=== PATIENT | female | born 1960 | race Caucasian/White ===

== ENCOUNTER → 2020-10-01 10:06 | Outpatient (CLI) | payer BC, SELFPAY ==
[2020-10-01 11:53] LABS: Add Manual Diff / Slide Review NO; Basophils Absolute Auto 0 /uL (0-100); Basophils Percent Auto 0.7 % (0-2); Eosinophils Absolute Auto 200 /uL (0-450); Eosinophils Percent Auto 2.8 % (2-4); Hematocrit 39.6 % (36-46); Hemoglobin 13.6 g/dL (12.0-16.0); Lymphocytes Absolute Auto 1900 /uL (1100-4500); Lymphocytes Percent Auto 31.7 % (25-40); Mean Corpuscular HGB Conc 34.3 % (30-36); Mean Corpuscular Hemoglobin 28.9 PG (26-34); Mean Corpuscular Volume 84.1 fL (80-100); Monocytes Absolute Auto 500 /uL (0-900); Monocytes Percent Auto 7.4 % (3-14); Neutrophils Absolute Auto 3500 /uL (1500-7000); Neutrophils Percent Auto 57.4 % (50-75); Platelet Count 269 X10^3/uL (150-400); Red Blood Cell Count 4.71 X10^6/uL (4.0-5.2); Red Cell Distribution Width 13.5 % (11.6-14.8); White Blood Cell Count 6.1 X10^3/uL (4.5-11.0)
[2020-10-01 13:35] LABS: Appearance Urine UA CLEAR; Bilirubin Urine UA NEGATIVE (NEGATIVE); Color Urine UA YELLOW; Glucose Urine UA NEGATIVE (Negative); Ketones Urine UA NEGATIVE (NEGATIVE); Leukocyte Esterase Urine UA NEGATIVE (NEGATIVE); Nitrite Urine UA NEGATIVE (Negative); Occult Blood Urine UA 3+ (Negative); Protein Urine UA TRACE (Negative); Urobilinogen Urine UA 0.2 E.U./dL (0.2)
[2020-10-01 13:59] LABS: pH Urine UA 5.5 (4.5-8.0)
[2020-10-01 14:00] LABS: Bacteria Urine None Seen; Culture Indicated Urine Cult Not Indicated; RBC Urine 5-10/HPF (0-5/HPF); Squamous Epithelial Cell Urine 0-1 /HPF (0-5/HPF); WBC Urine None Seen (0-5/HPF)
[2020-10-01 14:58] LABS: Alanine Aminotransferase 52 IU/L (<35); Albumin 3.9 g/dL (3.5-5.0); Albumin Globulin Ratio 1.4 (1.0-2.8); Alkaline Phosphatase 68 U/L (38-126); Aspartate Aminotransferase 38 IU/L (14-36); BUN Creatinine Ratio 22.8 (6-22); Bilirubin Total 0.5 mg/dL (0.2-1.3); Blood Urea Nitrogen 18 mg/dL (7-17); Calcium 9.5 mg/dL (8.4-10.2); Carbon Dioxide 31 mmol/L (22-32); Chloride 103 mmol/L (98-107); Cholesterol 149 mg/dL (140-199); Estimated Glomerular Filt Rate > 60.0 mL/min (>60); Globulin 2.8 g/dL (1.7-4.1); Glucose 88 mg/dL (80-110); HDL Cholesterol 51 mg/dL (40-60); HEMOLYSIS < 15 (0-50); LDL Cholesterol Calculated 83 mg/dL (<100); Potassium 4.2 mmol/L (3.4-5.1); Sodium 138 mmol/L (137-145); Total Protein 6.7 g/dL (6.3-8.2); Triglycerides 77 mg/dL (35-150)
== END ==
PROVIDERS: PCP Registered Nurse; Referring Provider Registered Nurse; Visit Provider Registered Nurse
DX: Z00.00 Encounter for general adult medical examination without abnormal findings (principal); Z79.899 Other long term (current) drug therapy; I10 Essential (primary) hypertension; E78.5 Hyperlipidemia, unspecified
CPT/HCPCS: 36415; 80053; 80061; 81003; 81015; 85025

== ENCOUNTER → 2020-11-04 08:39 | Outpatient (CLI) | payer BC, SELFPAY ==
[2020-11-04 09:30] LABS: Alanine Aminotransferase 36 IU/L (<35); Albumin 3.9 g/dL (3.5-5.0); Albumin Globulin Ratio 1.6 (1.0-2.8); Alkaline Phosphatase 69 U/L (38-126); Aspartate Aminotransferase 28 IU/L (14-36); Bilirubin Total 0.4 mg/dL (0.2-1.3); Bilirubin Unconjugated 0.4 mg/dL (0.0-1.1); Globulin 2.5 g/dL (1.7-4.1); HEMOLYSIS < 15 (0-50); Total Protein 6.4 g/dL (6.3-8.2)
== END ==
PROVIDERS: PCP Registered Nurse; Referring Provider Registered Nurse; Visit Provider Registered Nurse
DX: R74.8 Abnormal levels of other serum enzymes (principal)
CPT/HCPCS: 36415; 80076

== ENCOUNTER → 2021-02-17 07:31 | Outpatient (CLI) | payer BC, SELFPAY ==
[2021-02-17] MEDS: COVID-19 VACC #1, MRNA(MOD) 100 MCG/0.5 ML VIAL IM (07:38)
== END ==
PROVIDERS: PCP Family Medicine; Visit Provider Internal Medicine
DX: Z23 Encounter for immunization (principal)
CPT/HCPCS: 0011A; 91301

== ENCOUNTER → 2021-03-17 07:36 | Outpatient (CLI) | payer BC, SELFPAY ==
[2021-03-17] MEDS: COVID-19 VACC #2, MRNA(MOD) 100 MCG/0.5 ML VIAL IM (07:45)
== END ==
PROVIDERS: PCP Family Medicine; Visit Provider Internal Medicine
DX: Z23 Encounter for immunization (principal)
CPT/HCPCS: 0012A; 91301

== ENCOUNTER → 2021-12-30 15:22 | Outpatient (CLI) | payer BC, SELFPAY | PROVIDERS: PCP Family Medicine; Visit Provider Nurse Practitioner Family | DX: N89.8 Other specified noninflammatory disorders of vagina (principal); R30.0 Dysuria | CPT/HCPCS: 87077; 87086; 87186; 87210 ==

== ENCOUNTER → 2022-08-23 16:42 | Outpatient (CLI) | payer BC, OTHER, SELFPAY ==
--- NOTE | 2022-08-23 16:43 | DI.RAD.S_ITS ---
PROCEDURE: XR KNEE LT 3V INDICATIONS: left knee pain TECHNIQUE: 3 views of the knee were acquired. COMPARISON: None. FINDINGS: Bones: No fractures or dislocations. No suspicious bony lesions. Mild tricompartmental degenerative changes of the left knee with mild medial femorotibial compartment joint space narrowing. Soft tissues: No joint effusion. No suspicious soft tissue calcifications. IMPRESSION: Left knee without acute fracture or dislocation. Mild tricompartmental degenerative changes of the left knee. Dictated by: Godfrey Rosenberg M.D. on 08/24/2022 at 10:21 Approved by: Godfrey Rosenberg M.D. on 08/24/2022 at 10:22
== END ==
PROVIDERS: PCP Family Medicine; Referring Provider Family Medicine; Visit Provider Family Medicine
DX: M25.562 Pain in left knee (principal); G89.29 Other chronic pain
CPT/HCPCS: 73562

== ENCOUNTER → 2022-08-25 09:10 | Outpatient (CLI) | payer BC, OTHER, SELFPAY ==
[2022-08-25 10:33] LABS: Add Manual Diff / Slide Review NO; Basophils Absolute Auto 0 /uL (0-100); Basophils Percent Auto 0.8 % (0-2); Eosinophils Absolute Auto 100 /uL (0-450); Eosinophils Percent Auto 2.7 % (2-4); Hematocrit 40.9 % (36-46); Hemoglobin 13.9 g/dL (12.0-16.0); Lymphocytes Absolute Auto 1600 /uL (1100-4500); Lymphocytes Percent Auto 29.1 % (25-40); Mean Corpuscular Hemoglobin 28.1 PG (26-34); Mean Corpuscular Volume 82.7 fL (80-100); Monocytes Absolute Auto 400 /uL (0-900); Monocytes Percent Auto 7.6 % (3-14); Neutrophils Absolute Auto 3200 /uL (1500-7000); Neutrophils Percent Auto 59.8 % (50-75); Platelet Count 263 X10^3/uL (150-400); Red Blood Cell Count 4.94 X10^6/uL (4.0-5.2); Red Cell Distribution Width 13.7 % (11.6-14.8); White Blood Cell Count 5.4 X10^3/uL (4.5-11.0)
[2022-08-25 10:40] LABS: Microalbumi Creatinin Ratio Ur 33.9 ug/mg CR (<30); Microalbumin Urine Random 8.9 mg/dL (0-1.6)
[2022-08-25 10:56] LABS: Alanine Aminotransferase 38 IU/L (<35); Albumin 4.2 g/dL (3.5-5.0); Albumin Globulin Ratio 1.4 (1.0-2.8); Alkaline Phosphatase 76 U/L (38-126); Aspartate Aminotransferase 36 IU/L (14-36); Bilirubin Total 0.6 mg/dL (0.2-1.3); Blood Urea Nitrogen 16 mg/dL (7-17); Calcium 9.3 mg/dL (8.4-10.2); Carbon Dioxide 28 mmol/L (22-32); Chloride 101 mmol/L (98-107); Cholesterol 159 mg/dL (140-199); Estimated Glomerular Filt Rate > 60 mL/min (>60); Glucose 94 mg/dL (80-110); HDL Cholesterol 51 mg/dL (40-60); HEMOLYSIS < 15 (0-50); LDL Cholesterol Calculated 91 mg/dL (<100); Potassium 3.8 mmol/L (3.4-5.1); Sodium 138 mmol/L (137-145); Total Protein 7.2 g/dL (6.3-8.2); Triglycerides 84 mg/dL (35-150)
[2022-08-25 11:26] LABS: TSH w/ Reflex to FT4 1.92 uIU/mL (0.47-4.68)
== END ==
PROVIDERS: PCP Family Medicine; Referring Provider Family Medicine; Visit Provider Family Medicine
DX: Z00.00 Encounter for general adult medical examination without abnormal findings (principal); E78.2 Mixed hyperlipidemia; I10 Essential (primary) hypertension; R74.8 Abnormal levels of other serum enzymes
CPT/HCPCS: 36415; 80053; 80061; 82043; 82570; 84443; 85025

== ENCOUNTER → 2022-09-09 14:54 | Outpatient (CLI) | payer BC, OTHER, SELFPAY | PROVIDERS: PCP Family Medicine; Visit Provider Registered Nurse | DX: M25.422 Effusion, left elbow (principal) | CPT/HCPCS: 87070; 87075; 87205 ==

== ENCOUNTER → 2023-09-21 07:00 | Outpatient (CLI) | payer BC, OTHER, SELFPAY ==
[2023-09-21 08:21] LABS: Add Manual Diff / Slide Review NO; Basophils Absolute Auto 0 /uL (0-100); Basophils Percent Auto 0.7 % (0-2); Eosinophils Absolute Auto 300 /uL (0-450); Eosinophils Percent Auto 4.7 % (2-4); Hematocrit 40.9 % (36-46); Lymphocytes Absolute Auto 2100 /uL (1100-4500); Lymphocytes Percent Auto 31.1 % (25-40); Mean Corpuscular HGB Conc 34.4 % (30-36); Mean Corpuscular Hemoglobin 28.7 PG (26-34); Mean Corpuscular Volume 83.5 fL (80-100); Monocytes Absolute Auto 600 /uL (0-900); Neutrophils Absolute Auto 3600 /uL (1500-7000); Neutrophils Percent Auto 54.5 % (50-75); Platelet Count 282 X10^3/uL (150-400); Red Blood Cell Count 4.89 X10^6/uL (4.0-5.2); Red Cell Distribution Width 13.6 % (11.6-14.8); White Blood Cell Count 6.7 X10^3/uL (4.5-11.0)
[2023-09-21 08:46] LABS: Alanine Aminotransferase 32 IU/L (<35); Albumin 4.1 g/dL (3.5-5.0); Albumin Globulin Ratio 1.5 (1.0-2.8); Alkaline Phosphatase 65 U/L (38-126); Aspartate Aminotransferase 30 IU/L (14-36); BUN Creatinine Ratio 23.3 (6-22); Bilirubin Total 0.3 mg/dL (0.2-1.3); Blood Urea Nitrogen 17 mg/dL (7-17); Calcium 9.5 mg/dL (8.4-10.2); Carbon Dioxide 33 mmol/L (22-32); Chloride 101 mmol/L (98-107); Cholesterol 162 mg/dL (140-199); Estimated Glomerular Filt Rate > 60 mL/min (>60); Globulin 2.7 g/dL (1.7-4.1); Glucose 99 mg/dL (80-110); HDL Cholesterol 51 mg/dL (40-60); HEMOLYSIS < 15 (0-50); LDL Cholesterol Calculated 86 mg/dL (<100); Potassium 4.2 mmol/L (3.4-5.1); Sodium 138 mmol/L (137-145); Total Protein 6.8 g/dL (6.3-8.2); Triglycerides 127 mg/dL (35-150)
[2023-09-21 09:13] LABS: TSH w/ Reflex to FT4 3.13 uIU/mL (0.47-4.68)
[2023-09-21 10:07] LABS: Creatinine Urine Random 123.2 mg/dL
[2023-09-21 10:11] LABS: Microalbumi Creatinin Ratio Ur 12.1 ug/mg CR (<30); Microalbumin Urine Random 1.5 mg/dL (0-1.6)
[2023-09-21 16:29] LABS: Hep C Virus Ab w/Reflex Quant NEGATIVE s/c (NEGATIVE)
== END ==
PROVIDERS: PCP Family Medicine; Referring Provider Family Medicine; Visit Provider Family Medicine
DX: Z00.00 Encounter for general adult medical examination without abnormal findings (principal); E78.5 Hyperlipidemia, unspecified; I10 Essential (primary) hypertension; R74.8 Abnormal levels of other serum enzymes
CPT/HCPCS: 36415; 80053; 80061; 82043; 82570; 84443; 85025; 86803

== ENCOUNTER → 2023-10-18 08:37 | Outpatient (CLI) | payer BC, OTHER, SELFPAY ==
--- NOTE | 2023-10-18 08:39 | DI.MG.S_ITS ---
BILATERAL DIGITAL SCREENING MAMMOGRAM 3D/2D WITH CAD: 10/18/2023 CLINICAL: Routine screening. Family history of breast cancer. No prior exams were available for comparison. There are scattered areas of fibroglandular density in both breasts (category b / 25%-50% glandular tissue). Current study was also evaluated with a Computer Aided Detection (CAD) system. There is an asymmetry in the right breast posterior depth outer region seen on the craniocaudal view only. No other significant masses, calcifications, or other findings are seen in either breast. IMPRESSION: INCOMPLETE: NEEDS ADDITIONAL IMAGING EVALUATION The asymmetry in the right breast is indeterminate. Needs additional imaging evaluation. Recommend diagnostic mammogram and ultrasound. Based on the Tyrer Cuzick model (a risk assessment model) the patient's lifetime risk is 7.7% and her 10 year risk is 3.4%. According to the ACR, ACS, and NCCN guidelines, an annual breast MRI exam along with mammogram is recommended if the patient's lifetime risk is 20% or greater. This exam was interpreted at Station ID: [id number]. NOTE: For mammograms, a report in lay terms will be sent to the patient. Approximately 15% of breast malignancies will not be visualized mammographically. In the management of a palpable breast mass, a negative mammogram must not discourage biopsy of a clinically suspicious lesion. Electronically Signed By: Tash Gutierrez M.D., PH.D eb/:10/20/2023 10:32:11 letter sent: Additional Imaging Needed ACR BI-RADS Category 0: Incomplete 3340F
== END ==
PROVIDERS: PCP Family Medicine; Referring Provider Family Medicine; Visit Provider Family Medicine
DX: Z80.3 Family history of malignant neoplasm of breast (principal); Z12.31 Encounter for screening mammogram for malignant neoplasm of breast; Z00.00 Encounter for general adult medical examination without abnormal findings; E78.5 Hyperlipidemia, unspecified; I10 Essential (primary) hypertension; R74.8 Abnormal levels of other serum enzymes
CPT/HCPCS: 77063; 77067

== ENCOUNTER → 2023-11-03 09:39 | Outpatient (CLI) | payer BC, OTHER, SELFPAY ==
--- NOTE | 2023-11-03 09:40 | DI.MG.S_ITS ---
UNILATERAL RIGHT DIGITAL DIAGNOSTIC MAMMOGRAM 3D/2D WITH ADDITIONAL VIEWS: 11/03/2023 CLINICAL: Additional evaluation requested from prior study. Comparison is made to exams dated: 10/18/2023 mammogram - [facility], 08/03/2020 mammogram, 06/16/2018 mammogram, and 04/06/2016 mammogram - outside facility. There are scattered areas of fibroglandular density in the right breast (category b / 25%-50% glandular tissue). Comparison to outside priors demonstrate that the previously described asymmetry in the outer posterior region has been stable since at least 2018. No other significant masses, calcifications, or other findings are seen in the breast. IMPRESSION: BENIGN Right breast outer posterior asymmetry is stable since 2018 consistent with a benign etiology. No mammographic evidence of malignancy. A 1 year screening mammogram is recommended. Findings and recommendations were conveyed to the patient during today's evaluation. Based on the Tyrer Cuzick model (a risk assessment model) the patient's lifetime risk is 7.7% and her 10 year risk is 3.4%. According to the ACR, ACS, and NCCN guidelines, an annual breast MRI exam along with mammogram is recommended if the patient's lifetime risk is 20% or greater. This exam was interpreted at Station ID: [id number]. NOTE: For mammograms, a report in lay terms will be sent to the patient. Approximately 15% of breast malignancies will not be visualized mammographically. In the management of a palpable breast mass, a negative mammogram must not discourage biopsy of a clinically suspicious lesion. Electronically Signed By: Tash Gutierrez M.D., PH.D eb/:11/04/2023 01:30:25 letter sent: Normal Exam ACR BI-RADS Category 2: Benign Finding(s) 3342F
== END ==
PROVIDERS: PCP Family Medicine; Referring Provider Family Medicine; Visit Provider Family Medicine
DX: R92.8 Other abnormal and inconclusive findings on diagnostic imaging of breast (principal); N64.89 Other specified disorders of breast
CPT/HCPCS: 77065; G0279

== ENCOUNTER 2024-02-06 07:37 | Day surgery (SDC) | payer BC, OTHER, SELFPAY ==
[2024-02-06] MEDS: LACTATED RINGERS 1,000 ML 42 ML IV (07:53)
[2024-02-06 08:03] VITALS: BP 145/97; PULSE 105; RESP 16; TEMP 36.2; O2SAT 99
--- NOTE | 2024-02-06 08:46 | P.HP_ITS ---
History of Present Illness History of Present Illness Date Patient Seen: 02/06/24 Time Patient Seen: 08:46 Chief complaint: Screening Colonoscopy Narrative: 63-year-old woman here for screening colonoscopy. Last colonoscopy 13 years ago normal. No family history of intestinal malignancy. She reports occasional fecal incontinence associated with nausea. No blood per rectum or unintentional weight loss PFSH Social History Smoking Status: Never smoker alcohol intake: current Meds Home Medications and Allergies Home Medications Medication Instructions Recorded Confirmed Type diclofenac sodium 1 % topical gel 2 gram topical QID 09/25/20 09/18/23 History triamcinolone acetonide 0.1 % 1 applictn topical DAILY 09/25/20 09/18/23 History topical cream mometasone eardrops EAR-BOTH 02/11/21 09/18/23 History ondansetron 4 mg disintegrating 4 mg PO Q8H PRN nausea 02/11/21 02/06/24 History tablet conjugated estrogens 0.625 mg/gram 0.625 mg vaginal DAILY #30 grams 08/23/22 09/18/23 Rx vaginal cream (Premarin) lisinopril 10 0.5 tab PO DAILY #90 tabs 09/18/23 02/06/24 Rx mg-hydrochlorothiazide 12.5 mg tablet simvastatin 40 mg tablet 40 mg PO DAILY #90 tabs 09/18/23 02/06/24 Rx sumatriptan succinate 100 mg tablet See Rx Instructions PO .COMPLEX 09/18/23 02/06/24 Rx #30 tabs Allergies Allergy/AdvReac Type Severity Reaction Status Date / Time adhesive Allergy Mild Rash Verified 02/06/24 08:01 Exam Vital Signs (past 8 hours): - 02/06/24 08:03 Temperature 97.1 F L Pulse Rate 105 H Respiratory Rate 16 Blood Pressure 145/97 H Pulse Oximetry 99 Oxygen Delivery Method Room Air Oxygen Delivery Method Room Air Narrative Exam Narrative: General adult woman alert oriented no acute distress Chest nonlabored respiration Extremities warm well perfused Assessment & Plan Assessment & Plan narrative: The patient requires colorectal screening and colonoscopy is recommended. Te chnical details were discussed. Risks, benefits, alternatives explained. Risks including but not limited to myocardial infarction, aspiration, bleeding, pain, missed lesion, incomplete examination, need for further radiographic studies, colonic perforation, and need for major abdominal surgery were discussed. All questions were answered to their satisfaction, and they are in agreement with this plan.
[2024-02-06 09:15] VITALS: BP 107/71; PULSE 89; RESP 24; TEMP 37; O2SAT 94
[2024-02-06 09:20] VITALS: BP 121/76; PULSE 99; RESP 15; TEMP 37.1; O2SAT 96
--- NOTE | 2024-02-06 09:22 | P.OP.COLON_ITS ---
Operative Date/Time/Diagnoses Date of procedure: 02/06/24 Time of procedure: 09:22 Pre-op diagnosis: Colorectal screening Procedure & Clinicians Study performed: Colonoscopy Indications: Colorectal screening Surgeon: Jose Manuel Beltre Procedure Notes Procedure in detail: The history and physical was performed/updated and the patient is ASA class is 2. The procedure was discussed in detail with the patient. Potential risks complications including infection, bleeding, missed diagnosis, perforation, need for surgery, and were explained. Their questions were answered and informed consent was obtained. Patient was brought to the procedure room and placed standard monitoring equipme nt. The patient's vital signs were monitored continuously throughout the entire procedure. Prior to starting time-out was performed. The patient was placed in the left lateral recumbent position. Procedural sedation was administered by anesthesia. Examination began with a thorough inspection of the perianal area there was no evidence of fissures, fistulae, external hemorrhoids or cutaneous malignancy. The colonoscopy scope was then placed into the anal canal and was advanced to the cecum, which was identified by the ileocecal valve, the appendiceal orifice and the confluence of the taenia. The scope was then slowly withdrawn examining colon thoroughly in all directions, irrigating it of any residual stool. The scope was retroflexed within the rectum The patient tolerated the procedure well. They will be discharged once criteria are met. The prep was of good/excellent quality. The withdrawl time was 6 minutes. FINDINGS * No masses polyps or inflammation. * Tortuous colon within the pelvis Complications: none Impression: Normal colonoscopy Post-procedure Recommendations: Colonoscopy in 10 years Disposition: same day surgery
[2024-02-06 09:25] VITALS: BP 134/90; PULSE 91; RESP 12; TEMP 36.9; O2SAT 97
[2024-02-06 09:30] VITALS: BP 138/88; PULSE 90; RESP 16; TEMP 36.9; O2SAT 97
[2024-02-06 09:50] VITALS: PULSE 82; RESP 16; TEMP 36.4; O2SAT 98
== END 2024-02-06 09:53 | disposition home or self-care (01) ==
PROVIDERS: PCP Family Medicine; Referring Provider Surgery; Visit Provider Surgery
PROC: 0DJD8ZZ Inspection of Lower Intestinal Tract, Via Natural or Artificial Opening Endoscopic (ICD-10-PCS; CPT 45378; principal; 2024-02-06 08:45)
DX: Z12.11 Encounter for screening for malignant neoplasm of colon (principal)
CPT/HCPCS: 45378; J2704

== ENCOUNTER 2024-07-08 21:42 | Emergency (ER) | payer BC, OTHER, SELFPAY ==
[2024-07-08 21:45] VITALS: BP 175/90; PULSE 82; RESP 18; TEMP 36.3; O2SAT 98; BMI 30.4
[2024-07-08 22:11] LABS: Add Manual Diff / Slide Review NO; Basophils Absolute Auto 0 /uL (0-100); Basophils Percent Auto 0.4 % (0-2); Eosinophils Absolute Auto 200 /uL (0-450); Eosinophils Percent Auto 1.5 % (2-4); Hematocrit 41.1 % (36-46); Hemoglobin 14.1 g/dL (12.0-16.0); Lymphocytes Absolute Auto 2000 /uL (1100-4500); Lymphocytes Percent Auto 17.2 % (25-40); Mean Corpuscular HGB Conc 34.3 % (30-36); Mean Corpuscular Hemoglobin 28.2 PG (26-34); Mean Corpuscular Volume 82.2 fL (80-100); Monocytes Absolute Auto 800 /uL (0-900); Monocytes Percent Auto 6.6 % (3-14); Neutrophils Absolute Auto 8500 /uL (1500-7000); Neutrophils Percent Auto 74.3 % (50-75); Platelet Count 306 X10^3/uL (150-400); Red Blood Cell Count 5.01 X10^6/uL (4.0-5.2); Red Cell Distribution Width 14.1 % (11.6-14.8); White Blood Cell Count 11.4 X10^3/uL (4.5-11.0)
[2024-07-08 22:20] LABS: Alanine Aminotransferase 44 IU/L (<35); Albumin 4.4 g/dL (3.5-5.0); Albumin Globulin Ratio 1.4 (1.0-2.8); Alkaline Phosphatase 74 U/L (38-126); Aspartate Aminotransferase 39 IU/L (14-36); BUN Creatinine Ratio 16.8 (6-22); Bilirubin Total 0.7 mg/dL (0.2-1.3); Blood Urea Nitrogen 17 mg/dL (7-17); Calcium 9.5 mg/dL (8.4-10.2); Carbon Dioxide 26 mmol/L (22-32); Chloride 105 mmol/L (98-107); Estimated Glomerular Filt Rate > 60 mL/min (>60); Globulin 3.1 g/dL (1.7-4.1); Glucose 121 mg/dL (80-110); HEMOLYSIS 49 (0-50); Lipase 100 U/L (23-300); Potassium 3.5 mmol/L (3.4-5.1); Sodium 140 mmol/L (137-145); Total Protein 7.5 g/dL (6.3-8.2)
--- NOTE | 2024-07-08 22:32 | DI.CT.S_ITS ---
PROCEDURE: CT KIDNEY URETER BLADDER (KUB) INDICATIONS: flank pain TECHNIQUE: Axial sections were acquired from the lung bases to the pubic symphysis. Coronal and sagittal reformats were performed. For radiation dose reduction, the following was used: automated exposure control, adjustment of mA and/or kV according to patient size. COMPARISON: None. FINDINGS: Image quality: Diagnostic. Lower Chest: No significant findings. URINARY: Right Kidney: Mild hydronephrosis. No renal stones. Right Ureter: Obstructing 3 mm stone at the right ureterovesicular junction with mild upstream hydroureter and mild periureteral stranding. Left Kidney: No stones or hydronephrosis. Left Ureter: No hydroureter. Bladder: Normal wall thickness. No stones. ABDOMEN: Liver: No contour-deforming solid mass. Hepatic steatosis. Gallbladder: No radiopaque gallstones or wall thickening. Biliary ducts: No biliary dilation. Pancreas: No ductal dilation. Spleen: Size is within normal limits. Adrenal Glands: No adrenal nodules. Stomach and Bowel: Normal colonic caliber, without significant wall thickening. Peritoneum: No abnormal intraperitoneal fluid. No free air. Ventral Wall: No hernia. Abdominal Nodes: No enlarged retroperitoneal or mesenteric lymph nodes. Vessels: Aorta and inferior vena cava are normal in size. Atherosclerotic vascular calcifications. PELVIS: Pelvic Organs: Unremarkable. Pelvic Nodes: Unremarkable. Miscellaneous: No inguinal hernias are seen. Bones: Mild degenerative changes of the spine. IMPRESSION: Obstructing 3 mm stone at the right ureterovesicular junction with mild upstream hydroureteronephrosis. Dictated by: Danie Kelley M.D. on 07/08/2024 at 23:12 Approved by: Danie Kelley M.D. on 07/08/2024 at 23:16
--- NOTE | 2024-07-09 00:28 | ED_ITS ---
HPI - Back Pain/Injury General Chief Complaint: Back Pain/Injury Stated Complaint: Back and Rt side px Time Seen by Provider: 07/09/24 00:25 Source: patient History of Present Illness HPI Narrative: 64-year-old woman with a history of hypertension hyperlipidemia comes in complaining of right side flank and low abdominal pain. She experienced an episode earlier this month that was severe, caused vomiting and seemed to improve. She started having symptoms again yesterday and comes in for further evaluation. She has not taken any medication for this. She has not complaining of fevers, dysuria, hematuria. With his current episode she has not had any vomiting and by the time of our exam her pain is entirely resolved. She complains of no dyspnea, orthopnea, chest pain palpitations or headache Related Data Home Medications Medication Instructions Recorded Confirmed diclofenac sodium 1 % topical gel 2 gram topical QID 09/25/20 09/18/23 triamcinolone acetonide 0.1 % 1 applictn topical DAILY 09/25/20 09/18/23 topical cream mometasone eardrops EAR-BOTH 02/11/21 09/18/23 ondansetron 4 mg disintegrating 4 mg PO Q8H PRN nausea 02/11/21 02/06/24 tablet Previous Rx's Medication Instructions Recorded conjugated estrogens 0.625 mg/gram 0.625 mg vaginal DAILY #30 grams 08/23/22 vaginal cream (Premarin) lisinopril 10 0.5 tab PO DAILY #90 tabs 09/18/23 mg-hydrochlorothiazide 12.5 mg tablet simvastatin 40 mg tablet 40 mg PO DAILY #90 tabs 09/18/23 sumatriptan succinate 100 mg tablet See Rx Instructions PO .COMPLEX 09/18/23 #30 tabs oxycodone-acetaminophen 5 mg-325 1 tab PO Q6H PRN pain #10 tabs 07/09/24 mg tablet Allergies Allergy/AdvReac Type Severity Reaction Status Date / Time adhesive Allergy Mild Rash Verified 02/06/24 08:01 Review of Systems Review of Systems Narrative: Pertinent positive and negative findings as per HPI Patient History Medical History (Updated 07/09/24 @ 00:54 by Poly Mcqueen MD) Kidney stone Hyperlipidemia Essential hypertension Surgical History (Updated 07/09/24 @ 00:49 by Poly Mcqueen MD) History of cholecystectomy Social History Smoking Status: Never smoker alcohol intake: current Smoking Status: Never smoker alcohol intake frequency: holidays/special occasions only Substance Use Type: does not use Exam Initial Vital Signs Initial Vital Signs: Vital Signs Temperature 97.4 F L 07/08/24 21:45 Pulse Rate 82 07/08/24 21:45 Respiratory Rate 18 07/08/24 21:45 Blood Pressure 175/90 H 07/08/24 21:45 Pulse Oximetry 98 07/08/24 21:45 Oxygen Delivery Method Room Air 07/08/24 21:45 General: Healthy appearing, in no acute distress. Able to give a complete and coherent history. Well-nourished well-developed HEENT: Moist mucous membranes, normal sclera with reactive pupils, Respiratory: Lungs are clear to auscultation, no wheezing no rales no rhonchi. Full and symmetrical air movement Cardiac: Regular rate and rhythm no murmurs no bruits Abdomen: Soft, nontender, good bowel tones, no flank pain Skin: Warm and dry, no rashes Neurologic: Grossly neurologically intact with no obvious asymmetries or abnormalities Extremities: No trauma, well perfused Psych: Cooperative, appropriate insight and affect Course Orders Ordered: ED Orders 07/08/24 22:00 CMP [Comprehensive Metabolic Panel] Stat Complete Blood Count AUTO DIFF Stat Lipase Stat 07/08/24 22:32 CT kidney ureter bladder (KUB) Stat Ondansetron HCl (Ondansetron 4 Mg/2 Ml Inj) 4 mg IV NOW PRN PRN Reason: Nausea And Vomiting Vital Signs Vital signs: Vital Signs - 8 hr 07/08/24 21:45 Temperature 97.4 F L Pulse Rate 82 Respiratory Rate 18 Blood Pressure 175/90 H Pulse Oximetry 98 Oxygen Delivery Method Room Air MDM - Back Pain/Injury Lab Data 07/08/24 22:00 07/08/24 22:00 Labs: Lab Results 07/08/24 Range/Units 22:00 WBC 11.4 H (4.5-11.0) X10^3/uL RBC 5.01 (4.0-5.2) X10^6/uL Hgb 14.1 (12.0-16.0) g/dL Hct 41.1 (36-46) % MCV 82.2 (80-100) fL MCH 28.2 (26-34) PG MCHC 34.3 (30-36) % RDW 14.1 (11.6-14.8) % Plt Count 306 (150-400) X10^3/uL Neut % (Auto) 74.3 (50-75) % Lymph % (Auto) 17.2 L (25-40) % [place] % (Auto) 6.6 (3-14) % Eos % (Auto) 1.5 L (2-4) % Baso % (Auto) 0.4 (0-2) % Neut # (Auto) 8500 H (2230-6412) /uL Lymph # (Auto) 2000 (8979-2967) /uL [place] # (Auto) 800 (0-900) /uL Eos # (Auto) 200 (0-450) /uL Baso # (Auto) 0 (0-100) /uL Sodium 140 (137-145) mmol/L Potassium 3.5 (3.4-5.1) mmol/L Chloride 105 (98-107) mmol/L Carbon Dioxide 26 (22-32) mmol/L BUN 17 (7-17) mg/dL Creatinine 1.01 (0.52-1.04) mg/dL Estimated GFR > 60 (>60) mL/min BUN/Creatinine Ratio 16.8 (6-22) Glucose 121 H (80-110) mg/dL Calcium 9.5 (8.4-10.2) mg/dL Total Bilirubin 0.7 (0.2-1.3) mg/dL AST 39 H (14-36) IU/L ALT 44 H (<35) IU/L Alkaline Phosphatase 74 (38-126) U/L Total Protein 7.5 (6.3-8.2) g/dL Albumin 4.4 (3.5-5.0) g/dL Globulin 3.1 (1.7-4.1) g/dL Albumin/Globulin Ratio 1.4 (1.0-2.8) Lipase 100 (23-300) U/L Imaging Data CT scan - abdomen/pelvis: Radiologist's Impression: PROCEDURE: CT KIDNEY URETER BLADDER (KUB) INDICATIONS: flank pain TECHNIQUE: Axial sections were acquired from the lung bases to the pubic symphysis. Coronal and sagittal reformats were performed. For radiation dose reduction, the following was used: automated exposure control, adjustment of mA and/or kV according to patient size. COMPARISON: None. FINDINGS: Image quality: Diagnostic. Lower Chest: No significant findings. URINARY: Right Kidney: Mild hydronephrosis. No renal stones. Right Ureter: Obstructing 3 mm stone at the right ureterovesicular junction with mild upstream hydroureter and mild periureteral stranding. Left Kidney: No stones or hydronephrosis. Left Ureter: No hydroureter. Bladder: Normal wall thickness. No stones. ABDOMEN: Liver: No contour-deforming solid mass. Hepatic steatosis. Gallbladder: No radiopaque gallstones or wall thickening. Biliary ducts: No biliary dilation. Pancreas: No ductal dilation. Spleen: Size is within normal limits. Adrenal Glands: No adrenal nodules. Stomach and Bowel: Normal colonic caliber, without significant wall thickening. Peritoneum: No abnormal intraperitoneal fluid. No free air. Ventral Wall: No hernia. Abdominal Nodes: No enlarged retroperitoneal or mesenteric lymph nodes. Vessels: Aorta and inferior vena cava are normal in size. Atherosclerotic vascular calcifications. PELVIS: Pelvic Organs: Unremarkable. Pelvic Nodes: Unremarkable. Miscellaneous: No inguinal hernias are seen. Bones: Mild degenerative changes of the spine. IMPRESSION: Obstructing 3 mm stone at the right ureterovesicular junction with mild upstream hydroureteronephrosis. Dictated by: Danie Kelley M.D. on 07/08/2024 at 23:12 MDM Narrative Medical decision making narrative: CC: Intermittent episodes of right lower quadrant and right flank pain Complicating co-morbidities: Hypertension, hyperlipidemia Data collected from: patient Differential considered: Kidney stone, shingles, diverticulitis, appendicitis, bowel obstruction, constipation Exam documented above, pertinent findings include: At time of our exam her exam is entirely benign. No flank or abdominal pain. Lab Test results independently reviewed as above. Pertinent findings: CBC shows mild leukocytosis at 11.4 without left shift. H and H is unremarkable Chemistries show normal renal function, minimal elevation to AST and ALT Lipase is unremarkable Imaging studies independently reviewed: CT scan shows 3 mm kidney stone on the right side with mild hydronephrosis Discussion: 64-year-old woman with 3 mm right kidney stone almost into the bladder. Findings are reviewed with her. No evidence of infection, acute renal failure, pain is adequately controlled at this point. Reviewed anticipated course of stone. Anticipate that this will pass without any complication. She has given a small course of Percocet to use should pain return and we discussed use of ibuprofen and Tylenol. Also discussed reasons to return to the emergency department. She is safe for discharge Discharge Plan Departure Patient Disposition: Home Clinical Impression: Kidney stone Instructions: DI for Kidney Stones Activity Restrictions/Additional Instructions: Thank you for coming in today Your CT scan shows a 3 mm kidney stone almost ready to enter your bladder. This means that you have already done the majority of the work in passing the stone. This should continue to pass without any further complications There was no evidence of infection, acute kidney failure or other complications that would require hospitalization today. Using 400 mg of ibuprofen (2 [id number] pills) and 1 Tylenol every 6 hours can be very helpful in controlling pain. For severe pain using 400 mg of ibuprofen and 1 Percocet can be helpful. Percocet can cause constipation and has a potential for addiction so do use it sparingly and with a stool softener If you find that you are having increased pain, fevers or new findings please do return to the emergency department Prescriptions: New oxycodone-acetaminophen 5-325 mg tablet 1 tab PO Q6H PRN (Reason: pain) Qty: 10 0RF No Action diclofenac sodium 1 % gel 2 gram TOP QID Rx Instructions: apply to single elbow, wrist or hand; for hand includes palm/fingers/back of hand triamcinolone acetonide 0.1 % cream 1 applictn TOP DAILY Premarin 0.625 mg/gram cream 0.625 mg vaginal DAILY Qty: 30 1RF Rx Instructions: off 5 days; repeat cycle mometasone eardrops drops EAR-BOTH ondansetron 4 mg tablet,disintegrating 4 mg PO Q8H PRN (Reason: nausea ) lisinopril-hydrochlorothiazide 10-12.5 mg tablet 0.5 tab PO DAILY Qty: 90 3RF simvastatin 40 mg tablet 40 mg PO DAILY Qty: 90 3RF sumatriptan succinate 100 mg tablet See Rx Instructions PO .COMPLEX Qty: 30 3RF Rx Instructions: take 1 tab at onset of headache; if no relief, may repeat 1 tab after at least 2 hrs; max = 2 tabs/24 hrs PO Referrals: Guru Samaniego MD [Primary Care Provider] - Stand Alone Forms: Patient Portal/API
[2024-07-09 00:29] VITALS: BP 186/89; PULSE 68; RESP 17; O2SAT 98
[2024-07-09 00:54] LABS: Bacteria Urine Few (2-10); Culture Indicated Urine Cult Not Indicated; Mucus Urine 3+ (Negative); RBC Urine >100/HPF (0-5/HPF); Squamous Epithelial Cell Urine 1-5 /HPF (0-5/HPF); Urine Volume 10mL (spun); WBC Urine 1-5/HPF (0-5/HPF)
[2024-07-09 01:03] VITALS: BP 165/90; PULSE 68; RESP 16; O2SAT 95
== END 2024-07-09 01:03 | disposition home or self-care (01) ==
PROVIDERS: Emergency Provider Emergency Medicine; PCP Family Medicine
DX: N20.0 Calculus of kidney (principal); Z79.899 Other long term (current) drug therapy
CPT/HCPCS: 36415; 74176; 80053; 81003; 81015; 83690; 85025; 99283; 99284

== ENCOUNTER → 2024-08-19 06:45 | Outpatient (CLI) | payer BC, OTHER, SELFPAY ==
--- NOTE | 2024-08-19 06:47 | DI.US.S_ITS ---
PROCEDURE: US RENAL COMPLETE INDICATIONS: Mild hydronephrosis R due to stone TECHNIQUE: Real-time scanning was performed of the kidneys and bladder, with image documentation. Twenty-four images and 3 cine series COMPARISON: None. FINDINGS: Echogenic, shadowing 5mm diameter calcification posterior to the urinary bladder (images 21-23) suspicious for right distal ureter calculus but without evidence of right hydronephrosis. Alternatively phlebolith or other pelvic calcification could give this appearance. CT urogram may be useful for further evaluation. 1.6 x 1.5 x 1.5 cm superior-anterior left renal anechoic simple cyst. Kidneys: Kidneys are normal in size. Right kidney measures approximately 11.5 cm long; left kidney measures approximately 12.1 cm long. Right renal cortical thickness is 1.3 cm; left renal cortical thickness is 1.6 cm. Renal cortical echotexture is normal. No ultrasound evidence of solid mass lesion. Bladder: Pre-void bladder volume is 149 mL. Post-void residual is 0 mL. Pre-void images demonstrate no intraluminal masses. On pre-void images, bilateral ureteral jets are noted with color Doppler interrogation. Miscellaneous: No free pelvic fluid. IMPRESSION: 5mm diameter calcification posterior to the urinary bladder suspicious for right distal ureter calculus as discussed above. CT urogram may be useful for further evaluation. 1.6 cm left renal cyst. No hydronephrosis. Dictated by: Jacob Saavedra M.D. on 08/19/2024 at 9:26 Approved by: Jacob Saavedra M.D. on 08/19/2024 at 9:41
== END ==
PROVIDERS: PCP Family Medicine; Referring Provider Physician Assistant; Visit Provider Physician Assistant
DX: N20.1 Calculus of ureter (principal); N28.1 Cyst of kidney, acquired
CPT/HCPCS: 76770

== ENCOUNTER → 2024-08-24 08:32 | Outpatient (CLI) | payer BC, OTHER, SELFPAY ==
--- NOTE | 2024-08-24 08:33 | DI.RAD.S_ITS ---
PROCEDURE: XR ANKLE LT MIN 3V INDICATIONS: Left foot and ankle injury TECHNIQUE: 3 views of the ankle were acquired. COMPARISON: None. FINDINGS: Bones: No acute displaced fracture or dislocation. The ankle mortise appears intact. Soft tissues: No suspicious calcifications. IMPRESSION: No acute osseous abnormality. If there is high concern for occult injury, consider repeat radiography or cross-sectional imaging. Dictated by: Freddy No M.D. on 08/24/2024 at 8:52 Approved by: Freddy No M.D. on 08/24/2024 at 8:52
--- NOTE | 2024-08-24 08:33 | DI.RAD.S_ITS ---
PROCEDURE: XR FOOT LT MIN 3V INDICATIONS: Left foot and ankle injury TECHNIQUE: 3 views of the foot were acquired. COMPARISON: None. FINDINGS: Bones: Possible minimally displaced fracture of the 5th distal phalanx. Soft tissues: No suspicious calcifications. IMPRESSION: Possible minimally displaced fracture of the 5th distal phalanx. Dictated by: Freddy No M.D. on 08/24/2024 at 8:52 Approved by: Freddy No M.D. on 08/24/2024 at 8:54
== END ==
LOC: RAD 08:32
PROVIDERS: PCP Family Medicine; Referring Provider Physician Assistant Surgical; Visit Provider Physician Assistant Surgical
DX: S99.912A Unspecified injury of left ankle, initial encounter (principal); S99.922A Unspecified injury of left foot, initial encounter; M25.572 Pain in left ankle and joints of left foot; X58.XXXA Exposure to other specified factors, initial encounter
CPT/HCPCS: 73610; 73630

== ENCOUNTER → 2024-10-18 06:55 | Outpatient (CLI) | payer BC, OTHER, SELFPAY ==
[2024-10-18 07:56] LABS: Add Manual Diff / Slide Review NO; Basophils Absolute Auto 100 /uL (0-100); Basophils Percent Auto 0.8 % (0-2); Eosinophils Absolute Auto 400 /uL (0-450); Hematocrit 41.5 % (36-46); Hemoglobin 14.1 g/dL (12.0-16.0); Lymphocytes Absolute Auto 2800 /uL (1100-4500); Lymphocytes Percent Auto 31.2 % (25-40); Mean Corpuscular HGB Conc 34.1 % (30-36); Mean Corpuscular Hemoglobin 28.4 PG (26-34); Mean Corpuscular Volume 83.3 fL (80-100); Monocytes Absolute Auto 600 /uL (0-900); Monocytes Percent Auto 6.4 % (3-14); Neutrophils Absolute Auto 5200 /uL (1500-7000); Neutrophils Percent Auto 57.6 % (50-75); Platelet Count 320 X10^3/uL (150-400); Red Blood Cell Count 4.98 X10^6/uL (4.0-5.2); Red Cell Distribution Width 13.5 % (11.6-14.8)
[2024-10-18 08:19] LABS: Alanine Aminotransferase 49 IU/L (<35); Albumin Globulin Ratio 1.5 (1.0-2.8); Alkaline Phosphatase 71 U/L (38-126); Aspartate Aminotransferase 44 IU/L (14-36); BUN Creatinine Ratio 16.5 (6-22); Bilirubin Total 0.4 mg/dL (0.2-1.3); Blood Urea Nitrogen 15 mg/dL (7-17); Calcium 9.7 mg/dL (8.4-10.2); Carbon Dioxide 32 mmol/L (22-32); Chloride 101 mmol/L (98-107); Cholesterol 154 mg/dL (140-199); Estimated Glomerular Filt Rate > 60 mL/min (>60); Globulin 2.7 g/dL (1.7-4.1); Glucose 99 mg/dL (80-110); HDL Cholesterol 57 mg/dL (40-60); HEMOLYSIS < 15 (0-50); LDL Cholesterol Calculated 73 mg/dL (<100); Potassium 3.6 mmol/L (3.4-5.1); Sodium 136 mmol/L (137-145); Total Protein 6.7 g/dL (6.3-8.2); Triglycerides 121 mg/dL (35-150)
[2024-10-18 09:20] LABS: Free T4, Direct Thyroxine 0.96 ng/dL (0.78-2.19)
[2024-10-18 11:36] LABS: Creatinine Urine Random 134.83 mg/dL
[2024-10-18 11:41] LABS: Microalbumin Urine Random 7.2 mg/dL (0-1.6)
== END ==
PROVIDERS: PCP Family Medicine; Referring Provider Family Medicine; Visit Provider Family Medicine
DX: Z00.00 Encounter for general adult medical examination without abnormal findings (principal); R74.8 Abnormal levels of other serum enzymes; I10 Essential (primary) hypertension; E78.5 Hyperlipidemia, unspecified
CPT/HCPCS: 36415; 80053; 80061; 82043; 82172; 82570; 84439; 84443; 85025

== ENCOUNTER → 2025-01-23 06:49 | Outpatient (CLI) | payer OTHER, SELFPAY ==
[2025-01-23 08:57] LABS: Alanine Aminotransferase 37 IU/L (<35); Albumin Globulin Ratio 1.6 (1.0-2.8); Alkaline Phosphatase 64 U/L (38-126); Aspartate Aminotransferase 33 IU/L (14-36); BUN Creatinine Ratio 17.1 (6-22); Bilirubin Total 0.5 mg/dL (0.2-1.3); Blood Urea Nitrogen 13 mg/dL (7-17); Calcium 9.1 mg/dL (8.4-10.2); Carbon Dioxide 29 mmol/L (22-32); Chloride 101 mmol/L (98-107); Estimated Glomerular Filt Rate > 60 mL/min (>60); Globulin 2.5 g/dL (1.7-4.1); Glucose 101 mg/dL (80-110); HEMOLYSIS < 15 (0-50); Potassium 3.9 mmol/L (3.4-5.1); Sodium 137 mmol/L (137-145); Total Protein 6.5 g/dL (6.3-8.2)
[2025-01-23 09:24] LABS: Creatinine Urine Random 138.26 mg/dL
[2025-01-23 09:25] LABS: TSH w/ Reflex to FT4 3.31 uIU/mL (0.47-4.68)
[2025-01-23 09:26] LABS: Microalbumin Urine Random 3.3 mg/dL (0-1.6)
== END ==
PROVIDERS: PCP Family Medicine; Referring Provider Family Medicine; Visit Provider Family Medicine
DX: R74.8 Abnormal levels of other serum enzymes (principal); I10 Essential (primary) hypertension; E78.2 Mixed hyperlipidemia; R79.89 Other specified abnormal findings of blood chemistry
CPT/HCPCS: 36415; 80053; 82043; 82570; 84443

== ENCOUNTER → 2025-01-24 | Outpatient (CLI) | payer OTHER, BC, SELFPAY ==
--- NOTE | 2025-01-24 17:16 | DI.MG.S_ITS ---
MM screening mammo BI: 01/24/2025. BI-RADS: 2 CLINICAL: 64-year old female for bilateral screening mammogram. Tyrer-Cuzick lifetime risk of 8.4%. No personal or first-degree family history of breast cancer. Current reported family history of breast cancer: maternal aunt. The patient is status-post reduction mammoplasty. PRIOR EXAMS 11/03/2023, 10/18/2023. MAMMOGRAPHY TECHNIQUE: 2D and 3D (tomosynthesis) digital mammographic views obtained, with additional images as needed for full coverage. Current study was also evaluated with a Computer Aided Detection (CAD) system. DENSITY B. There are scattered areas of fibroglandular density. MAMMOGRAPHY FINDINGS Bilateral: Reduction mammoplasty changes present. There are no suspicious masses, calcifications, or other findings in the breast. IMPRESSION: * No evidence of malignancy with benign findings. RECOMMENDATIONS Bilateral * Annual screening mammography. OVERALL ASSESSMENT CATEGORY BI-RADS-2: Benign. The [employer] recommends annual screening mammography beginning at age 40 for women with average risk of breast cancer. ELECTRONICALLY SIGNED: Tash Gutierrez M.D. on 01/29/2025 at 11:15:37 PM PT Interpreting Station ID: [id number]
== END ==
PROVIDERS: PCP Family Medicine; Referring Provider Family Medicine; Visit Provider Family Medicine
DX: Z12.31 Encounter for screening mammogram for malignant neoplasm of breast (principal); Z80.3 Family history of malignant neoplasm of breast
CPT/HCPCS: 77063; 77067

== ENCOUNTER → 2025-10-27 09:06 | Outpatient (CLI) | payer MEDICARE, OTHER, SELFPAY ==
--- NOTE | 2025-10-27 09:09 | DI.RAD.S_ITS ---
PROCEDURE: XR KNEE RT 3V INDICATIONS: bilateral knee pain TECHNIQUE: 3 views of the knee were acquired. COMPARISON: [facility], CR, XR KNEE LT 3V, 08/23/2022, 16:58. FINDINGS: Mild degenerative changes of the right knee with mild joint space narrowing in the medial compartment greater than patellofemoral and lateral compartments. Kellgren Bandar grade 2. No radiographic evidence of displaced fracture, dislocation or high attenuation soft tissue foreign body. IMPRESSION: Mild degenerative changes. If symptoms persist or worsen, or there is high clinical suspicion of knee abnormality, MRI could be performed. Dictated by: Jacob Saavedra M.D. on 10/27/2025 at 11:10 Approved by: Jacob Saavedra M.D. on 10/27/2025 at 11:11
--- NOTE | 2025-10-27 09:09 | DI.RAD.S_ITS ---
PROCEDURE: XR LUMBAR SPINE 3V INDICATIONS: chronic low back pain TECHNIQUE: 3 views of the lumbar spine were acquired. COMPARISON: None. FINDINGS: Mild degenerative changes of the lower thoracic, lumbar spine with disc space narrowing and osteophytes, facet osseous hypertrophic changes most notably at L4-5 and L5- S1. Mild levoscoliosis. No radiographic evidence of fracture, subluxation. Minimal vascular calcifications. Degenerative changes of the bilateral hips partially imaged. IMPRESSION: Degenerative changes. If symptoms persist or worsen, or there is high clinical suspicion of lumbar abnormality, MRI could be performed. Dictated by: Jacob Saavedra M.D. on 10/27/2025 at 11:11 Approved by: Jacob Saavedra M.D. on 10/27/2025 at 11:13
--- NOTE | 2025-10-27 09:09 | DI.RAD.S_ITS ---
PROCEDURE: XR KNEE LT 3V INDICATIONS: Left knee pain TECHNIQUE: 3 views of the knee were acquired. COMPARISON: [facility], , XR KNEE LT 3V, 08/23/2022, 16:58. FINDINGS: Mild degenerative changes of the left knee with mild joint space narrowing medial and patellofemoral greater than lateral compartments, Kellgren Bandar grade 2. No radiographic evidence of fracture, dislocation or knee joint effusion. IMPRESSION: Degenerative changes. If symptoms persist or worsen, or there is high clinical suspicion of left knee abnormality, MRI could be performed. Dictated by: Jacob Saavedra M.D. on 10/27/2025 at 11:06 Approved by: Jacob Saavedra M.D. on 10/27/2025 at 11:09
== END ==
PROVIDERS: PCP Family Medicine; Referring Provider Family Medicine; Visit Provider Family Medicine
DX: M25.561 Pain in right knee (principal); M25.562 Pain in left knee; M54.41 Lumbago with sciatica, right side; M54.42 Lumbago with sciatica, left side; M47.816 Spondylosis without myelopathy or radiculopathy, lumbar region; M47.814 Spondylosis without myelopathy or radiculopathy, thoracic region; M47.817 Spondylosis without myelopathy or radiculopathy, lumbosacral region; M41.9 Scoliosis, unspecified; G89.29 Other chronic pain
CPT/HCPCS: 72100; 73562

== ENCOUNTER → 2025-11-03 06:52 | Outpatient (CLI) | payer MEDICARE, OTHER, SELFPAY ==
[2025-11-03 07:43] LABS: Microalbumi Creatinin Ratio Ur 40.0 ug/mg CR (<30)
[2025-11-03 07:46] LABS: Add Manual Diff / Slide Review NO; Hematocrit 41.3 % (36-46); Hemoglobin 14.5 g/dL (12.0-16.0); Lymphocytes Absolute Auto 2500 /uL (1100-4500); Mean Corpuscular HGB Conc 35.0 % (30-36); Mean Corpuscular Hemoglobin 28.6 PG (26-34); Mean Corpuscular Volume 81.5 fL (80-100); Platelet Count 286 X10^3/uL (150-400)
[2025-11-03 07:51] LABS: Alanine Aminotransferase 56 IU/L (<35); Albumin 4.2 g/dL (3.5-5.0); Albumin Globulin Ratio 1.4 (1.0-2.8); Alkaline Phosphatase 70 U/L (38-126); Blood Urea Nitrogen 14 mg/dL (7-17); Calcium 9.4 mg/dL (8.4-10.2); Carbon Dioxide 28 mmol/L (22-32); Chloride 103 mmol/L (98-107); Cholesterol 178 mg/dL (140-199); Estimated Glomerular Filt Rate > 60 mL/min (>60); Globulin 2.9 g/dL (1.7-4.1); Glucose 112 mg/dL (70-99); HDL Cholesterol 59 mg/dL (40-60); HEMOLYSIS < 15 (0-50); Potassium 4.3 mmol/L (3.4-5.1); Sodium 140 mmol/L (137-145); Total Protein 7.1 g/dL (6.3-8.2); Triglycerides 103 mg/dL (35-150)
[2025-11-03 08:17] LABS: TSH w/ Reflex to FT4 5.74 uIU/mL (0.47-4.68)
[2025-11-03 08:42] LABS: Free T4, Direct Thyroxine 1.11 ng/dL (0.78-2.19)
== END ==
PROVIDERS: PCP Family Medicine; Referring Provider Family Medicine; Visit Provider Family Medicine
DX: Z00.00 Encounter for general adult medical examination without abnormal findings (principal); M54.41 Lumbago with sciatica, right side; E78.2 Mixed hyperlipidemia; G89.29 Other chronic pain; M54.42 Lumbago with sciatica, left side; G43.909 Migraine, unspecified, not intractable, without status migrainosus; F41.9 Anxiety disorder, unspecified
CPT/HCPCS: 36415; 80053; 80061; 82043; 82570; 84439; 84443; 85025